=== PATIENT | female | born 1985 | race Asian ===

== ENCOUNTER 2020-10-10 10:35 | Emergency (ER) | payer OTHER ==
[~2020-10-10] VITALS: Ht 170.2 cm; Wt 76.2 kg
[2020-10-10 13:10] VITALS: BP 112/80; TEMP 98.5
== END 2020-10-10 13:10 | disposition home or self-care (01) ==
LOC: ED 10:35
DX: K04.7 Periapical abscess without sinus (principal); L30.8 Other specified dermatitis
CPT/HCPCS: 96372; 99282; 99283; J1885